=== PATIENT | male | born 1965 | race Caucasian/White ===

== ENCOUNTER 2023-11-06 06:28 | Outpatient (OUT) | payer OTHER, SELFPAY ==
--- NOTE | 2023-11-06 06:31 | MR_ITS ---
[place] [id number] Patient Name: HELEN POWER MRN: [id number] date: 1965 Sex: M Assigned Patient Location: MRI Current Patient Location: MRI Accession/Order Number: [id number] Exam Date: 11/06/2023 06:50 Report Date: 11/06/2023 09:10 At the request of: NON-STAFF PHYSICIAN Procedure: MR shoulder LT wo con EXAMINATION: MR shoulder LT wo con HISTORY: right shoulder pain M25.11 COMPARISON: No relevant comparison available. TECHNIQUE: A variety of imaging planes and parameters were utilized for visualization of suspected pathology. Imaging was performed without contrast. FINDINGS: ROTATOR CUFF REGION CUFF TENDONS: Moderately increased signal intensity in the supraspinatus and subscapularis tendons indicates tendon degeneration and/or tendinitis. No jacquelin tear is seen. CUFF MUSCLES: Normal appearing muscles. DELTOID: Normal. No significant atrophy or tear. LONG BICEPS TENDON: Normal. No abnormal signal, attrition, or tear. LABRUM/BICEPS ANCHOR SUPERIOR: Normal. No visible labral tear or biceps anchor pathology. ANTERIOR/INFERIOR: Normal. No visible tear or attrition. POSTERIOR: Normal. No posterior labrum abnormality. CAPSULE Normal. No visible capsular laxity or thickening. AC JOINT REGION AC JOINT: Moderate osteoarthropathy with no narrowing of the underlying coracoacromial arch. AC LIGAMENTS: Normal acromioclavicular ligament. CC LIGAMENTS: Normal coracoclavicular ligaments. ACROMION: Normal horizontal (Type I) configuration. SUBACROMIAL BURSA: Normal. No significant effusion. HYALINE CARTILAGE: Moderate diffuse humeral and glenoid cartilage thinning. OTHER BONES: Mild subcortical bone marrow signal changes in the superior aspect of the humerus may be caused by subacromial impingement. OTHER OBSERVATIONS: Negative. No other significant findings or glenohumeral effusion. MR/MR shoulder LT wo con IMPRESSION: Moderate rotator cuff tendinitis with no full-thickness tear Electronically authenticated by: HARJINDER RAI Date: 11/06/2023 09:10
--- NOTE | 2023-11-06 06:45 | XR_ITS ---
[facility] [address] [address] Patient Name: HELEN POWER MRN: [id number] date: 1965 Sex: M Assigned Patient Location: MRI Current Patient Location: MRI Accession/Order Number: [id number] Exam Date: 11/06/2023 06:46 Report Date: 11/06/2023 07:03 At the request of: NON-STAFF PHYSICIAN Procedure: XR foreign body eye EXAMINATION: XR foreign body eye HISTORY: Foreign Body Eye COMPARISON: No relevant comparison available. FINDINGS: ORBITS: Negative for a metallic foreign body. OTHER: Negative. XR/XR foreign body eye IMPRESSION: No metallic foreign body in the orbits Electronically authenticated by: HARJINDER RAI Date: 11/06/2023 07:03
== END 2023-11-06 06:29 | disposition home or self-care (01) ==
LOC: MRI 06:28
DX: M25.551 Pain in right hip (principal); M25.511 Pain in right shoulder; M25.512 Pain in left shoulder; M77.8 Other enthesopathies, not elsewhere classified
CPT/HCPCS: 70030; 73221